=== PATIENT | female | born 1950 | race Caucasian/White ===

== ENCOUNTER 2016-09-16 12:19 | Emergency (ER) | payer OTHER ==
[~2016-09-16] VITALS: Ht 157.5 cm; Wt 66.7 kg
[~2016-09-16 12:19] MED LIST: 1-ME1LIQ PO; LOVA20TA PO
[2016-09-16 12:23] VITALS: BP 178/100; PULSE 65; RESP 18; TEMP 98; O2SAT 96
[2016-09-16] MEDS ORDERED: AMLO10TA2 PO (12:34)
[2016-09-16] MEDS ORDERED: SIMV40TA PO (12:34)
[2016-09-16] MEDS ORDERED: ESTR0.5T PO (12:34)
[2016-09-16 12:43] VITALS: BP 184/101; PULSE 64; RESP 18; O2SAT 95
--- NOTE | 2016-09-16 12:51 | PD ---
HPI Chief Complaint: leg pain Time Seen by Provider: 12:42 Travel History International Travel<30 days: No Contact w/Intl Traveler<30days: No Traveled to known affect area: No History of Present Illness HPI 66-year-old female presents with left calf pain that is been present over the past couple of days. She states she had swelling to both her legs but the right leg has resolved and she never had pain to that leg. She states that she recently was on a long flight where she sat for 6 hours. She denies any other associated pain. She states she takes her blood pressure medication at night and took it last night like she should. She states that she takes Norvasc. Quality is pressure. Severity is moderate. Denies specific modifying factors. PFSH Past Medical History High Cholesterol: Yes Diminished Hearing: No Hypertension: Yes Influenza Vaccination: Yes ?: Not Past Surgical History Surgical History: No Previous Surgery Social History Alcohol Use: Yes Tobacco Use: No Allergies-Medications (Allergen,Severity, Reaction): Coded Allergies: No Known Allergies (Unverified , 01/11/14) Reported Meds & Prescriptions Reported Meds & Active Scripts Active Reported Simvastatin 40 Mg Tab 40 Mg PO HS Estradiol 0.5 Mg Tab 0.5 Mg PO WEEKLY Amlodipine (Amlodipine Besylate) 10 Mg Tab 10 Mg PO HS Review of Systems Except as stated in HPI: all other systems reviewed are Neg Physical Exam Narrative GENERAL: Well-nourished, well-developed patient. SKIN: Warm and dry. HEAD: Normocephalic and atraumatic. EYES: No injection or drainage. ENT: No nasal drainage noted. NECK: Supple, trachea midline. CARDIOVASCULAR: Regular rate and rhythm RESPIRATORY: Breath sounds equal bilaterally. No accessory muscle use. GASTROINTESTINAL: Abdomen soft, non-tender, nondistended. EXTREMITIES: No edema, ttp to left calf, no pain with joints , neurovascularly intact, no lacerations over, compartments soft. NEUROLOGICAL: Awake and alert. Motor and sensory grossly within normal limits. Normal speech. Data Data Last Documented VS Vital Signs Date Time Temp Pulse Resp B/P Pulse Ox O2 Delivery O2 Flow Rate FiO2 09/16/16 14:00 16 09/16/16 13:44 64 150/84 96 Room Air 09/16/16 12:23 98.0 Orders Us Leg Venous Doppler Bilat (09/16/16 12:42) Complete Blood Count With Diff (7/5/17 12:42) Basic Metabolic Panel (Bmp) (09/16/16 12:42) Act Partial Throm Time (Ptt) (09/16/16 12:42) Prothrombin Time / Inr (Pt) (09/16/16 12:42) Iv Access Insert/Monitor (09/16/16 12:42) Ecg Monitoring (09/16/16 12:42) Oximetry (09/16/16 12:42) Labs Laboratory Tests Test 09/16/16 12:50 White Blood Count 7.2 TH/MM3 Red Blood Count 4.71 MIL/MM3 Hemoglobin 13.8 GM/DL Hematocrit 41.5 % Mean Corpuscular Volume 88.0 FL Mean Corpuscular Hemoglobin 29.4 PG Mean Corpuscular Hemoglobin 33.3 % Concent Red Cell Distribution Width 11.9 % Platelet Count 259 TH/MM3 Mean Platelet Volume 8.1 FL Neutrophils (%) (Auto) 65.2 % Lymphocytes (%) (Auto) 25.5 % Monocytes (%) (Auto) 7.6 % Eosinophils (%) (Auto) 1.3 % Basophils (%) (Auto) 0.4 % Neutrophils # (Auto) 4.7 TH/MM3 Lymphocytes # (Auto) 1.8 TH/MM3 Monocytes # (Auto) 0.6 TH/MM3 Eosinophils # (Auto) 0.1 TH/MM3 Basophils # (Auto) 0.0 TH/MM3 CBC Comment DIFF FINAL Differential Comment Prothrombin Time 10.6 SEC Prothromb Time International 1.0 RATIO Ratio Activated Partial 28.2 SEC Thromboplast Time Sodium Level 139 MEQ/L Potassium Level 3.7 MEQ/L Chloride Level 103 MEQ/L Carbon Dioxide Level 27.3 MEQ/L Anion Gap 9 MEQ/L Blood Urea Nitrogen 11 MG/DL Creatinine 0.74 MG/DL Estimat Glomerular Filtration 79 ML/MIN Rate Random Glucose 128 MG/DL Calcium Level 8.9 MG/DL [facility] Medical Decision Making Medical Screen Exam Complete: Yes Emergency Medical Condition: Yes Medical Record Reviewed: Yes (past history confirmed) Interpretation(s) CBC & BMP Diagram 09/16/16 12:50 ble doppler no dvt Differential Diagnosis DVT, Flannery cyst, strain Narrative Course Will check labs, ultrasound and reevaluate. ed workup no acute, Patient denies any new complaints, all questions answered. Patient knows that follow up is incumbent on them and to return to the emergency room immediately if new or worsening symptoms develop. Patient given strict return precautions, vitals reviewed and are normal, agrees to further workup as an outpatient. Diagnosis Primary Impression: Leg pain Qualified Code: M79.605 - Pain of left lower extremity Patient Instructions: General Instructions Additional Instructions: return as needed, elevate leg at rest, have repeat ultrasound in one week thru primary if symptoms persist Med/Other Pt SpecificInfo: No Change to Meds Disposition: 01 DISCHARGE HOME Condition: Stable Kiana Woodward MD Sep 16, 2016 12:50
[2016-09-16 13:11] LABS: AUTOMATED NEUTROPHIL # 4.7 TH/MM3 (1.8-7.7); BASOPHIL % 0.4 % (0.0-2.0); EOSINOPHIL # 0.1 TH/MM3 (0-0.4); EOSINOPHIL % 1.3 % (0.0-4.0); HEMATOCRIT 41.5 % (35.0-46.0); HEMO FLAGS DIFF FINAL; LYMPH % 25.5 % (9.0-44.0); LYMPHOCYTE # 1.8 TH/MM3 (1.0-4.8); MEAN CORPUSCULAR HEMOGLOBIN 29.4 PG (27.0-34.0); MEAN CORPUSCULAR HGB CONC 33.3 % (32.0-36.0); MONO % 7.6 % (0.0-8.0); NEUT % 65.2 % (16.0-70.0); PLATELET COUNT 259 TH/MM3 (150-450); RED BLOOD COUNT 4.71 MIL/MM3 (4.00-5.30); RED CELL DISTRIBUTION WIDTH 11.9 % (11.6-17.2); WHITE BLOOD COUNT 7.2 TH/MM3 (4.0-11.0)
[2016-09-16 13:19] LABS: POTASSIUM 3.7 MEQ/L (3.5-5.1)
[2016-09-16 13:22] LABS: APTT (PATIENT) 28.2 SEC (24.3-30.1); PROTHROMBIN TIME - PATIENT 10.6 SEC (9.8-11.6)
[2016-09-16 13:24] LABS: BICARBONATE 27.3 MEQ/L (21.0-32.0)
[2016-09-16 13:44] VITALS: BP 150/84; PULSE 64; RESP 18; O2SAT 96
--- NOTE | 2016-09-16 14:13 | RADRPT ---
EXAM DATE/TIME: 09/16/2016 13:24 [facility] COMPARISON: No previous studies available for comparison. INDICATIONS : Bilateral leg pain. MEDICAL HISTORY : Hypercholesterolemia. Hypertension. Mumps. Measles. SURGICAL HISTORY : None. ENCOUNTER: Initial ACUITY: 1 day PAIN SCORE: 4/10 LOCATION: Bilateral legs. TECHNIQUE: Venous ultrasound of the left and right leg was performed from the inguinal ligament to the proximal calf. Real-time, color Doppler and spectral tracing, compression and augmentation techniques were us ed. FINDINGS: RIGHT LEG: There is normal compressibility of the deep venous system from the inguinal region to the proximal ca lf. No echogenic clot is seen in the lumen of the common femoral, femoral, popliteal, and posterior tibial veins. There is a normal response of the venous system to proximal and distal augmentation an d respiration. LEFT LEG: There is normal compressibility of the deep venous system from the inguinal region to the proximal ca lf. No echogenic clot is seen in the lumen of the common femoral, femoral, popliteal, and posterior tibial veins. There is a normal response of the venous system to proximal and distal augmentation an d respiration. CONCLUSION: Negative for deep venous thrombosis. Elroy Churchill MD FACR on September 16, 2016 at 14:10 Board Certified Radiologist. This report was verified electronically.
[2016-09-16 14:28] VITALS: BP 127/90
== END 2016-09-16 14:33 | disposition home or self-care (01) ==
LOC: PHED 12:19
DX: M79.662 Pain in left lower leg (principal); R22.42 Localized swelling, mass and lump, left lower limb; I10 Essential (primary) hypertension; E78.00 Pure hypercholesterolemia, unspecified
CPT/HCPCS: 80048; 85025; 85610; 85730; 93970